=== PATIENT | male | born 1955 | race Caucasian/White ===

== ENCOUNTER 2023-02-17 08:56 | Outpatient (CLI) | payer MEDICARE, OTHER, SELFPAY ==
[2023-02-17 09:08] VITALS: BP 111/68; PULSE 68; RESP 20; TEMP 36.7; O2SAT 98
[2023-02-17 09:51] VITALS: BP 128/81; PULSE 63; RESP 20; O2SAT 100
--- NOTE | 2023-02-17 09:51 | DI.RAD_ITS ---
Exam(s) XR PAIN CLINIC LUMBAR SP 2V EXAM: XR PAIN CLINIC LUMBAR SP 2V CLINICAL HISTORY: DX: Lumbar Radiculopathy TECHNIQUE: 2D and realtime digital imaging was performed. CONTRAST MATERIAL: Refer to procedure report. COMPARISON: No exams were available for comparison FINDINGS: Fluoroscopy was provided for Dr. Ingram during the performance of a lumbar epidural steroid injection. Please refer to the procedure report for complete details. Ka,r=5.29 mGy IMPRESSION:
[2023-02-17] MEDS: Omnipaque 240 MG/ML 50 ML BTL IJ (09:53)
[2023-02-17] MEDS: methylPREDNISolone ACETATE 80 MG/ML VIAL IJ (09:53)
--- NOTE | 2023-02-17 10:24 | PDOC.PAIN_ITS ---
Date of service: 02/17/23 Time of Service: 10:24 Pain Managment Procedure Note Procedure Note Procedure Note: PROCEDURE NOTE LUMBAR EPIDURAL STEROID INJECTION Date of Service: February 17, 2023 Patient:Shady Pineda? Provider: Garth Ingram DO, MPH Shady Jeronimo has been referred to the [facility] for a lumbar epidural steroid injection. Pre-operative diagnosis: Lumbosacral Radiculopathy Post-operative diagnosis: Same Pre-Procedure Pain: VAS= 2 /10 Comments: I previously evaluated him in the past. His symptoms are the same as they were at that time. Shady was interviewed and the medical record was reviewed.? There were no medical, pharmacologic, radiographic or other structural contraindications to attempting fluoroscopically guided Lumbar epidural steroid injection.? Risks, potential side effects, indications, and potential benefits of the procedure were reviewed with Shady.? Questions and concerns were addressed.? After it was clear that Shady was fully informed about the procedure, the printed consent form was signed by the patient and myself.? Shady was placed in the prone position on the fluoroscopy table and automated blood pressure cuff and pulse oximeter applied. The skin entry point for entering/approaching the epidural space for the lumbar epidural steroid injection was marked. Following thorough chlorhexadine preparation of the skin and draping and 1% lidocaine infiltration of the skin entry point and subcutaneous tissues, an 18 gauge Touhy needle was placed and advanced under fluoroscopic guidance and with loss of resistance technique into the L5-S1 epidural space. Needle tip placement and depth were aided and confirmed by fluoroscopy. There was no paresthesia or return of blood or CSF through the needle. 1 mls of Omnipaque 240 was injected with clear epidural spread confirmed with fluoroscopy. 80 mg of Depo-Medrol was? injected. This was followed by 1 ml of preservative-free normal saline to flush the steroid out of the needle. There was no unusual discomfort expressed by Shady. The needle was withdrawn without difficulty. (49 mls of Omnipaque was wasted) Shady was observed and was without hemodynamic, neurologic, or allergic reactions.? Fluoroscopic images were digitally archived. Shady's vital signs were stable throughout the procedure and were as recorded in nursing records. Follow up plans and appointments were discussed with Shady. Post procedure instruction was given as documented in nursing records and having met discharge criteria Shady was discharged from the [facility]. COMMENTS: No apparent complications. Post-procedure pain: VAS= 0/10. Shady to contact [facility] as needed. If at least 50% improvement in pain and/or function for at least 3 months is achieved, this procedure can be repeated. I did refer him to Neurology for an EMG/NCV when I saw him last. We checked on that referral today and confirmed the fax number as they did not have receipt of the referral. This was re-faxed and confirmed that it was received. A physical therapy prescription was also sent at his last visit, but the patient had apperently not been called. I did change the Physical Therapy facility to [facility] as they can potentially also do acupuncture (the patient was inquiring about this treatment). I personally performed this entire procedure. GARTH INGRAM DO, MPH ABPMR-subspecialty board certification in Pain Medicine [facility]
== END 2023-02-17 08:57 | disposition home or self-care (01) ==
LOC: PC 08:57
PROVIDERS: PCP Naturopath; Visit Provider Preventive Medicine Occupational Medicine
DX: M54.50 Low back pain, unspecified (principal); M54.17 Radiculopathy, lumbosacral region
CPT/HCPCS: 00123; 62323; 72100; J1040; Q9967